=== PATIENT | male | born 1960 | race African-American/Black ===

== ENCOUNTER 2017-11-12 04:18 | Emergency (ER) | payer SELFPAY ==
[~2017-11-12] VITALS: Ht 175.3 cm; Wt 75.9 kg
[~2017-11-12 04:18] MED LIST: PRED20TA; SULF1TAB24
[2017-11-12 04:20] VITALS: BP 129/86
== END 2017-11-12 04:48 | disposition left against medical advice (07) ==
LOC: ED 04:40
DX: R41.82 Altered mental status, unspecified (principal); Z53.21 Procedure and treatment not carried out due to patient leaving prior to being seen by health care provider

== ENCOUNTER 2017-11-12 06:10 | Emergency (ER) | payer SELFPAY ==
[~2017-11-12] VITALS: Ht 175.3 cm; Wt 75.7 kg
[2017-11-12 06:11] VITALS: BP 127/81
[2017-11-12 07:40] LABS: MICROSCOPIC NOT IND
[2017-11-12 07:47] LABS: AMPHETAMINE SCREEN, URINE Negative (Negative); BARBITURATE SCREEN, URINE Negative (Negative); BENZODIAZEPINE SCREEN, URINE Negative (Negative); CANNABINOID SCREEN, URINE Negative (Negative); COCAINE SCREEN, URINE Negative (Negative); METHADONE SCREEN, URINE Negative (Negative); OPIATE SCREEN, URINE Negative (Negative)
[2017-11-12 08:08] LABS: CULTURE INDICATED? NO
== END 2017-11-12 07:57 | disposition left against medical advice (07) ==
LOC: ED 07:51
DX: R44.1 Visual hallucinations (principal); F17.200 Nicotine dependence, unspecified, uncomplicated
CPT/HCPCS: 70450; 80307; 81003; 99285